=== PATIENT | male | born 1955 | race Caucasian/White ===

== ENCOUNTER 2018-05-26 06:11 | Inpatient (IN) ==
[~2018-05-26 06:11] MED LIST: ceFAZolin 1,000 MG, Sodium Chloride IRRigation 1,000 ML IR ONE
[2018-05-26] MEDS ORDERED: Albuterol 2.5 MG/3 ML NEBULIZER IH ONE ×2 (06:47→07:09)
[2018-05-26] MEDS ORDERED: Albuterol 2.5 MG/3 ML NEBULIZER ONE (06:51)
[2018-05-26] MEDS ORDERED: Ringers Solution, Lactated 1,000 ML IVC SCH ×2 (07:00→07:15)
[2018-05-26] MEDS ORDERED: Heparin 1,000 UNITS/500 mL 500 ML ONE (07:07)
[2018-05-26] MEDS ORDERED: LIDOCAINE 1% PF 2 ML AMPUL ONE (07:07)
[2018-05-26] MEDS ORDERED: Acetaminophen IV 1,000 MG/100 ML INFUS..BTL ONE (07:07)
[2018-05-26] MEDS ORDERED: *HR* FentaNYL (PF) 100 MCG/2 ML VIAL ONE ×2 (07:10→11:54)
[2018-05-26] MEDS ORDERED: *HR* Propofol 200 MG/20 ML VIAL IVP ONE (07:11)
[2018-05-26] MEDS ORDERED: *HR* Midazolam HCl 2 MG/2 ML VIAL ONE (07:11)
[2018-05-26] MEDS ORDERED: Lidocaine -MPF 2% 2 ML VIAL ONE ×3 (07:12→08:07)
[2018-05-26] MEDS ORDERED: *HR* Succinylcholine 200 MG/10 ML VIAL IVP ONE (07:13)
[2018-05-26] MEDS ORDERED: *HR* Rocuronium Bromide 50 MG/5 ML VIAL ONE (07:13)
[2018-05-26] MEDS ORDERED: Lidocaine -MPF 4% 5 ML AMPUL ONE (07:15)
[2018-05-26] MEDS ORDERED: *HR* Phenylephrine 10 MG/ML VIAL ONE ×2 (07:16→09:32)
[2018-05-26] MEDS ORDERED: CeFAZolin Syr 2,000MG/20 ML 2,000 MG/20 ML SYRINGE IVPB ONE (07:19)
[2018-05-26] MEDS ORDERED: *HR* Remifentanil 1 MG VIAL IVP ONE (07:20)
[2018-05-26] MEDS ORDERED: Heparin 1,000 UNITS/500 mL 1,000 ML ONE (07:22)
[2018-05-26] MEDS ORDERED: Lidocaine 1% 20 ML MDV ONE (07:23)
--- NOTE | 2018-05-26 07:29 | History & Physical Report ---
Date of Encounter: 05/26/18 Time of Encounter: 07:28 24 Hour HP Update - Instructions Instructions: If the History and Physical is less than 30 days old and was completed prior to A.M. admission and or procedure and has NOT been updated on calendar day of procedure please complete this update prior to performing procedure. - Update Patient reports changes in Medical Condition: No Changes in examination, assessment, or condition: No Changes in Medication: No Preop tests/diagnostics Reviewed: Yes Surgery Remains Indicated: Yes Consent for Planned Operative Procedure(s) Verified: Yes - Pre-Operative Checklist Preoperative Checklist Indicated: Yes Prophylactic Antibiotic Ordered: Yes Home Medications Include Beta Paras: No Beta Paras Taken Today (Day of Surgery): No Beta Paras Taken Yesterday (Day Prior to Surgery): No Is VTE Prophylaxis Indicated?: Yes
[2018-05-26] MEDS ORDERED: Famotidine 20 MG/2 ML VIAL IVP ONE (07:35)
[2018-05-26] MEDS ORDERED: Acetaminophen IV 1,000 MG/100 ML INFUS..BTL IVPB ONE (07:35)
--- NOTE | 2018-05-26 07:37 | Anesthesia Evaluation PreOp ---
Date of Encounter: 05/26/18 Time of Encounter: 07:36 - Past History Planned Operation: L CEA Cardiac History: HTN, Hyperlipidemia Pulmonary History: Smoker (1 ppd), Other (High risk AAYUSH) SKEINER History: TIA (12/2017), Other (migraines, anxiety) Other Medical History: Thyroid (hypothyroid) Anesthesia History: No Prior Anesthetic Complications, Past Anesthesia (bilater tota hips, partial thyroid) Alcohol Use: recent Drug use: none Medications and Allergies ARIPiprazole [Abilify] 2 mg PO HS 05/15/18 [History] Aspirin [Lo-Dose Aspirin EC] 81 mg PO DAILY 05/15/18 [History] Citalopram Hydrobromide [Citalopram HBr] 40 mg PO DAILY 05/15/18 [History] Clopidogrel [Plavix] 75 mg PO DAILY 05/15/18 [History] LORazepam [Ativan] 1 mg PO QID 05/15/18 [History] Levothyroxine Sodium [Levoxyl] 224 mcg PO DAILY 05/15/18 [History] Trazodone HCl 150 mg PO HS 05/15/18 [History] 3 Allergy/AdvReac Type Severity Reaction Status Date / Time Penicillins Allergy Rash Verified 05/26/18 07:09 - Meds/Allergy Pre-op Review Medications Reviewed: Yes Allergies Reviewed: Yes Beta Blockers on Current Med List: No Anesthesia Results - Labs Laboratory Tests 05/07/18 05/07/18 05/07/18 11:57 11:58 11:58 WBC 3.4 L Hgb 10.2 L Hct 31.3 L Plt Count 102 L PT 12.1 INR 1.1 APTT 32.3 Sodium 136 Potassium 4.6 Chloride 102 Carbon Dioxide 26 BUN 15 Creatinine 0.89 Est GFR (Non-Af Amer) > 60 - Imaging Additional studies: Impressions: LVEF 60-65%. Normal LV chamber size, wall thickness and function. Mild left ventricular diastolic dysfunction. Normal right ventricular structure and function. No evidence of pulmonary hypertension. No significant valvular dysfunction. Vessel Findings: * Cerebrovascular Arteries There is a lesion present with 95%+ stenosis, in the Proximal Right Internal Carotid. The lesion has heavy calcification present. No intervention was performed on this Lesion. There is a lesion present with 95%+ stenosis, in the Proximal Left Internal Carotid. The lesion has heavy calcification present. No intervention was performed on this Lesion. Anesthesia Exam Vital Signs/O2 Sat/Glucose, Most Recent Temp Pulse Resp BP Pulse Ox 97.6 F 93 18 131/73 97 05/26/18 06:36 05/26/18 06:36 05/26/18 06:36 05/26/18 06:36 05/26/18 06:36 Height: 1.73 Weight: 102 kg NPO (# of Hours): > 8 - HEENT Pupil (Motor): Pupils equal Mallampati: III Teeth: Edentulous Oral Opening: Greater than 3 - SKEINER LOC: Oriented SKEINER Motor: Normal RUE, Normal LUE, Normal RLE, Normal LLE, Normal Face SKEINER Sensory: Normal: RUE, LUE, RLE, LLE, Face - Cardiac Rhythm: Regular Murmur: None - Pulmonary Breath Sounds: bilateral Clear Respiratory Effort: Symmetrical Anesthesia Assess/Plan ASA Score: 3 Modified Hazel Scale for Level of Consciousness: Cooperative, oriented, and tranquil Anesthetic Plan: General Monitoring Plan: Standard Monitors, A-Line Recovery Plan: PACU
[2018-05-26] MEDS ORDERED: *HR* Promethazine 25 MG/ML VIAL IVP PRN (07:41)
[2018-05-26] MEDS ORDERED: Ondansetron 4 MG/2 ML VIAL IVP ONE (07:41)
[2018-05-26] MEDS ORDERED: *HR* Labetalol 100 MG/20 ML MDV IVP PRN (07:41)
[2018-05-26] MEDS ORDERED: *HR* FentaNYL (PF) 100 MCG/2 ML VIAL IVP PRN (07:41)
[2018-05-26] MEDS ORDERED: *HR* OxyCODONE Immed Rel 5 MG TABLET PO PRN (07:41)
[2018-05-26] MEDS ORDERED: Dexamethasone 4 MG/ML VIAL ONE ×2 (08:22→13:11)
[2018-05-26] MEDS ORDERED: Ondansetron 4 MG/2 ML VIAL ONE (08:22)
[2018-05-26] MEDS ORDERED: *HR* Heparin 5,000 UNIT/ML VIAL ONE ×2 (09:24→10:04)
[2018-05-26] MEDS ORDERED: *HR* PHENYLEPHRINE 1,000 MCG/10 ML SYRINGE IVP ONE (09:29)
[2018-05-26] MEDS ORDERED: Ketorolac 30 MG/ML VIAL ONE (09:53)
[2018-05-26] MEDS ORDERED: Neostigmine Methylsulfate 3 MG/3 ML SYRINGE ONE (11:54)
--- NOTE | 2018-05-26 12:21 | Operative Note ---
Date of procedure: 05/26/18 Pre-op diagnosis: TIA/bilateral carotid stenosis Post-op diagnosis: same Procedure: left carotid endarterectomy with 8 Fr shunt Complications: none Anesthesia: SADIAA Surgeon: Armin Patino Was there an starch treating assistant present: No Estimated blood loss (cc): 200 Specimen: 0 Condition: stable Disposition: PACU Procedure in Detail: History Mr. Tripathi is a 63-year-old white male who experienced an abrupt onset of neurologic symptoms in late February. He had difficulties with fine motor control and his gait. These have improved over time but it led to a neurologic workup. This included CT angiogram as well as catheter-based angiography. He was found to have high-grade and critical internal carotid artery stenoses bilaterally. He now comes to the operating room for the first of 2 operations with the left carotid endarterectomy to be performed first. Procedure After informed consent was obtained the patient was taken the operating room. General endotracheal anesthesia was established under arterial line pressure monitoring. The left neck was sterilely prepped and draped. A timeout protocol was observed. An incision was then made parallel to the anterior border of the left sternocleidomastoid muscle. Dissection was carried down to open and expose the contents of the carotid sheath. An anatomic abnormality was identified with the vagus nerve being translocated onto the anterior and medial surface of the carotid system. This complicated the dissection in order to avoid any trauma to the vagus nerve. This was gently dissected and reflected more medially. The bifurcation of the carotid artery was also high in the neck. Dissection was made so that the carotid bifurcation and the superior thyroid artery were selectively controlled. 5000 units of heparin were administered intravenously. After 3 minutes later the vessels were clamped with the internal carotid artery clamped first. Using 11 blade knife and Hull scissors the artery was opened. Very thickened dense calcific stenosis was identified at the bulb and proximal left internal carotid artery. The plaque was markedly irregular with a critical stenosis as outlined on the angiogram. After this area was opened and 8 Spanish shunt was then placed atraumatically. Patency of the shunt was confirmed by the use of intraoperative Doppler. The endarterectomy was then begun at the distal aspect of the common carotid artery. A dissection plane was established circumferentially. This was carried both proximally and distally. The orifice of the external carotid and superior thyroid artery was endarterectomized. The dissection was then carried up on into the left internal carotid artery. The endpoint was smooth. No tacking sutures were necessary at this location though this was very high in the neck. Attention was then directed proximally. It was found that the patient had a posteromedial tongue of very dense and thick plaque. This required an extension of the arteriotomy proximally. This required that the proximal clamp E be located more proximally as well. With this done the endarterectomy was performed of the more proximal aspect of the common carotid artery. The bed of the vessel was then copiously irrigated with heparinized saline. All loose or residual material was removed. A patch and plasty was then performed using a bovine pericardial patch. This was sewn into position using 2 6-0 Prolene sutures. Leaving a small space open on the suture line the shunt was clamped divided and removed. The final few sutures were then placed. The internal was allowed to backbleed and reclamped. The external and common were opened and then finally the internal was reopened. There is no hemodynamic distress with this maneuver. Excellent Doppler signals were identified throughout the left carotid system. The wound was then irrigated. Hemostasis was achieved. A superficial cervical block using half percent Marcaine was performed. The wound was then closed in layers using absorbable sutures. No drains were placed. The patient was extubated in the operating room. He was found to be neurologically intact. He was then taken from the operating room to the recovery room in stable condition.
[2018-05-26] MEDS ORDERED: *HR* Metoprolol 5 MG/5 ML VIAL IVP ONE (12:22)
--- NOTE | 2018-05-26 12:56 | Anesthesia Evaluation Post Op ---
Date of Encounter: 05/26/18 Time of Encounter: 12:55 - Vital Signs Vital Signs: Vital Signs/O2 Sat/Glucose, Most Recent Temp Pulse Resp BP Pulse Ox 100.8 F H 101 16 164/71 95 05/26/18 12:18 05/26/18 12:38 05/26/18 12:38 05/26/18 12:38 05/26/18 12:38 - Lungs Lungs: Clear Ascult./Percussion - Airway Airway: Non-obstructed - Cardiovascular Regular Rate - Mental Status Mental Status: Alert & Oriented, Answers Appropriately - Pain Pain Scale: 2 Pain Scale used: Numeric (1 - 10), DavisMarilee (Faces) - Nausea Vomiting Nausea Vomiting: Not Present - Hydration Hydration: NPO - Discharge PostOp Status: Transfer Patient to floor
[2018-05-26] MEDS ORDERED: *HR* HYDROcodone/Acet 5/325 mg TABLET PO PRN (13:28)
[2018-05-26] MEDS ORDERED: Ondansetron 4 MG/2 ML VIAL IVP PRN (13:28)
[2018-05-26] MEDS ORDERED: Acetaminophen 325 MG TABLET PO PRN (13:28)
[2018-05-26] MEDS ORDERED: *HR* Labetalol 20 MG/4 ML SYRINGE IVP PRN (13:28)
[2018-05-26] MEDS ORDERED: Naloxone 0.4 MG/ML INJ IVP PRN (13:28)
[2018-05-26] MEDS: *HR* LORazepam 1 MG TABLET PO SCH ×3 (14:36→21:23)
[2018-05-26] MEDS ORDERED: ARIPiprazole 2 MG TABLET PO SCH (21:00)
[2018-05-26] MEDS ORDERED: traZODone 50 MG TABLET PO SCH (21:00)
[2018-05-27 05:23] LABS: Red Cell Distribution Width 18.5 % (11.5-14.5)
[2018-05-27 05:24] LABS: Eosinophils % 1.4 %; Hematocrit 22.9 % (37.5-50.1); Hemoglobin 7.4 g/dL (12.9-16.9); Immature Granulocytes % 0.7 % (0-4); Lymphocytes # 0.5 K/mcL (0.6-4.6); Lymphocytes % 34.7 %; Mean Corpuscular HGB Conc 32.3 g/dL (31.6-35.5); Mean Corpuscular Hemoglobin 31.4 pg (28.0-33.3); Mean Platelet Volume 9.6 fL (9.4-12.4); Monocytes # 0.1 K/mcL (0.0-1.3); Monocytes % 6.8 %; Red Blood Count 2.36 M/mcL (4.19-5.50); Segmented Neutrophils % 56.4 %
[2018-05-27 05:31] LABS: Neutrophils # 0.9 K/mcL (1.6-8.9); Platelet Count 80 K/mcL (140-400)
[2018-05-27 05:44] LABS: BUN/Creatinine Ratio 19 (6-26); Blood Urea Nitrogen 14 mg/dL (8-23); Calcium 8.8 mg/dL (8.6-10.3); Carbon Dioxide 28 mEq/L (23-29); Chloride 107 mEq/L (98-107); Glucose 100 mg/dL (70-105); Osmolality,Calculated 289 (280-300); Sodium 139 mEq/L (136-145); eGFR For Non-African Americans > 60 (> 60)
[2018-05-27 06:12] LABS: Platelet Estimate Decreased (Normal)
[2018-05-27] MEDS: *HR* LORazepam 1 MG TABLET PO SCH ×2 (08:08→13:06)
[2018-05-27] MEDS ORDERED: Aspirin Enteric Coated 81 MG Tablet PO SCH (09:00)
[2018-05-27 11:48] VITALS: BP 140/60
--- NOTE | 2018-05-27 12:43 | Discharge Summary ---
Orders not resulted at time of discharge: Pending orders 05/20/18 Red Blood Cells [BBK] Routine Date of Encounter: 05/27/18 Time of Encounter: 12:41 - Discharge Diagnosis (1) Bilateral carotid artery stenosis Priority: Primary Status: Acute Comments: Patient was found to have a neurologic event in late February. This led to workup and eventual referral to vascular surgery. An angiogram was obtained which showed high-grade bilateral internal carotid artery stenoses. He comes to the hospital for this admission for the first of 2 carotid endarterectomies. The left carotid endarterectomy was performed first. (2) Hypertension Priority: Secondary Status: Chronic Comments: Patient has history of chronic hypertension Qualifiers: Hypertension type: essential hypertension Qualified Code(s): I10 - Essential (primary) hypertension (3) Hyperlipidemia Priority: Secondary Status: Chronic Comments: Patient has history of chronic hyperlipidemia Qualifiers: Hyperlipidemia type: unspecified Qualified Code(s): E78.5 - Hyperlipidemia , unspecified (4) Tobacco abuse Priority: Secondary Status: Chronic Comments: Patient has history of tobacco abuse - Hospital Course Hospital course: Mr. Price is a 63 year old male Who was admitted for carotid endarterectomy. Patient has bilateral carotid stenosis. He comes for the left carotid artery surgery first. This was performed under general endotracheal anesthesia. The patient had no periprocedural complications. The patient recovered well. He was neurologically intact. He was hemodynamically stable. He was felt fit for discharge on the afternoon of postoperative day #1. Instructions were given in regards to diet and activity and wound care prior to discharge. - Time Spent with Patient Total time spent providing and/or coordinating discharge services: - Discharge Medications Home Medications: ARIPiprazole [Abilify] 2 mg PO HS 05/15/18 [History] Aspirin [Lo-Dose Aspirin EC] 81 mg PO DAILY 05/15/18 [History] Citalopram Hydrobromide [Citalopram HBr] 40 mg PO DAILY 05/15/18 [History] Clopidogrel [Plavix] 75 mg PO DAILY 05/15/18 [History] LORazepam [Ativan] 1 mg PO QID 05/15/18 [History] Levothyroxine Sodium [Levoxyl] 224 mcg PO DAILY 05/15/18 [History] Trazodone HCl 150 mg PO HS 05/15/18 [History] Allergies/Adverse Reactions: 3 Allergy/AdvReac Type Severity Reaction Status Date / Time Penicillins Allergy Rash Verified 05/26/18 07:09 Date of admission: 05/26/18 13:10 Primary care physician: Armin Vargas DO Consults: None Procedure(s) Performed: Left carotid endarterectomy with patch angioplasty Discharging clinician: Armin Patino Anticipated date of discharge: 05/27/18 Exam Vital Signs, Last 4 Hours Temp Pulse Resp BP Pulse Ox 05/27/18 11:42 97.8 F 84 18 140/60 99 General: Present: Conversant, No Apparent Distress, Well developed, Well nourished HEENT: Present: Atraumatic, Normocephaly, Trachea midline, Pupils equal Neck: Absent: JVD Cardiac: Present: Reg Rate and Rhythm Lungs: Present: Normal Breath Sounds Neuro: Present: Alert and responsive, No focal deficits noted, Cranial nerves grossly intact, Motor nerves grossly intact, Sensory nerves grossly intact Vascular: Present: Surgical incisions (Left neck surgical site is clean and dry. There is no hematoma.) - Patient Status Disposition: Home, Self-Care Condition: Good Functional capacity at discharge: independent ambulation Overall status at discharge: patient is progressing back to baseline - Discharge Instructions Follow Up With: Armin Vargas DO [Primary Care Provider] - 06/01/18 1:00 pm Armin Patino MD [Partnered Physician] - 06/10/18 8:45 am Additional Instructions: Use ice pack on left neck for the next 48 hours No lifting greater than 10 pounds. No driving. No manual labor. Resume usual home medications. Keep left neck incision dry for a total of 5 days following surgery. Patient may walk inside and outside. Patient may use stairs as tolerated. - Diet and Activity Activity: increase activity as tolerated Diet: low fat, low cholesterol - VTE Documentation of Mechanical Device: Intermittent pneumatic compression device
== END 2018-05-27 13:30 | disposition home or self-care (01) | DRG 39 ==
LOC: SAMDAY 06:11 → 2NNU 13:10
PROVIDERS: ADMIT Surgery Vascular Surgery; ATTEND Surgery Vascular Surgery

== ENCOUNTER 2020-03-02 15:27 | Inpatient (IN) ==
[2020-03-02] MEDS ORDERED: Naloxone 0.4 MG/ML INJ IVP PRN (19:47)
[2020-03-03] MEDS: traZODone 50 MG TABLET PO SCH ×2 (00:26→20:38)
[2020-03-03] MEDS: 0.9 % Sodium Chloride 1,000 ML IVC SCH ×2 (00:28→14:21)
[2020-03-03 01:04] LABS: Basophils % 0.7 %; Eosinophils # 0.1 K/mcL (0.0-0.6); Eosinophils % 3.3 %; Hematocrit 25.3 % (37.5-50.1); Immature Platelets 1.3 % (1.1-6.1); Lymphocytes # 0.3 K/mcL (0.6-4.6); Lymphocytes % 20.3 %; Mean Corpuscular HGB Conc 31.6 g/dL (31.6-35.5); Mean Corpuscular Hemoglobin 31.1 pg (28.0-33.3); Mean Corpuscular Volume 98.4 fL (83.0-100.0); Mean Platelet Volume 9.8 fL (9.4-12.4); Monocytes # 0.1 K/mcL (0.0-1.3); Monocytes % 7.2 %; Red Blood Count 2.57 M/mcL (4.19-5.50); Red Cell Distribution Width 16.6 % (11.5-14.5); Segmented Neutrophils % 68.5 %; White Blood Count 1.5 K/mcL (4.3-11.1)
[2020-03-03 01:05] LABS: Platelet Count 71 K/mcL (140-400)
[2020-03-03 01:21] LABS: Alanine Aminotransferase 7 Units/L (7-52); Albumin 3.9 g/dL (3.5-5.7); Albumin/Globulin Ratio 1.6 (1.1-2.2); Alkaline Phosphatase 68 Units/L (34-104); Aspartate Amino Transferase 9 Units/L (13-39); BUN/Creatinine Ratio 18 (6-26); Bilirubin,Total 1.3 mg/dL (0.3-1.0); Blood Urea Nitrogen 14 mg/dL (8-23); Calcium 8.7 mg/dL (8.6-10.3); Carbon Dioxide 28 mEq/L (23-29); Chloride 104 mEq/L (98-107); Globulin 2.4 g/dL (2.4-3.5); Glucose 105 mg/dL (70-105); Osmolality,Calculated 283 (280-300); Potassium 3.9 mEq/L (3.5-5.1); Sodium 136 mEq/L (136-145); Total Protein 6.3 g/dL (6.4-8.9); eGFR For African Americans > 60 (> 60); eGFR For Non-African Americans > 60 (> 60)
[2020-03-03 01:23] LABS: INR 1.1
[2020-03-03 01:25] LABS: Activated Partial Thrombo Time 34.2 Seconds (26.0-36.0)
[2020-03-03 01:29] LABS: Anisocytosis 1+ (Not Present); Platelet Estimate Decreased (Normal)
[2020-03-03] MEDS ORDERED: Cyanocobalamin (B-12) 1,000 MCG/ML VIAL IM SCH (08:15)
[2020-03-03] MEDS: BuPROPion XL (24 HR) 150 MG TABLET PO SCH (10:57)
[2020-03-03] MEDS: Venlafaxine XR (24 HR) 75 MG CAP.ER.24H PO SCH (10:57)
[2020-03-03] MEDS: *HR* LORazepam 1 MG TABLET PO SCH ×4 (10:57→20:38)
[2020-03-03] MEDS: Aspirin Enteric Coated 81 MG Tablet PO SCH (10:57)
[2020-03-03] MEDS: *HR* Heparin 5,000 UNIT/ML VIAL SQ SCH (16:49)
[2020-03-04 05:58] LABS: Hemoglobin 6.9 g/dL (12.9-16.9)
[2020-03-04 06:00] LABS: Eosinophils % 1.9 %; Hematocrit 22.4 % (37.5-50.1); Lymphocytes # 0.3 K/mcL (0.6-4.6); Lymphocytes % 31.7 %; Mean Corpuscular HGB Conc 30.8 g/dL (31.6-35.5); Mean Corpuscular Hemoglobin 30.7 pg (28.0-33.3); Mean Corpuscular Volume 99.6 fL (83.0-100.0); Mean Platelet Volume 9.7 fL (9.4-12.4); Monocytes # 0.1 K/mcL (0.0-1.3); Monocytes % 6.7 %; Neutrophils # 0.6 K/mcL (1.6-8.9); Red Blood Count 2.25 M/mcL (4.19-5.50); Red Cell Distribution Width 16.9 % (11.5-14.5); Segmented Neutrophils % 58.7 %
[2020-03-04 06:10] LABS: Platelet Count 66 K/mcL (140-400)
[2020-03-04 06:16] LABS: BUN/Creatinine Ratio 16 (6-26); Blood Urea Nitrogen 13 mg/dL (8-23); Calcium 8.4 mg/dL (8.6-10.3); Carbon Dioxide 26 mEq/L (23-29); Chloride 104 mEq/L (98-107); Glucose 82 mg/dL (70-105); Osmolality,Calculated 281 (280-300); Phosphorous 3.2 mg/dL (2.7-4.5); Potassium 3.8 mEq/L (3.5-5.1); Sodium 136 mEq/L (136-145); eGFR For African Americans > 60 (> 60); eGFR For Non-African Americans > 60 (> 60)
[2020-03-04 06:34] LABS: Platelet Estimate Decreased (Normal)
[2020-03-04] MEDS: *HR* Heparin 5,000 UNIT/ML VIAL SQ SCH ×2 (06:51→17:29)
[2020-03-04] MEDS: *HR* LORazepam 1 MG TABLET PO SCH ×4 (07:21→20:50)
[2020-03-04] MEDS: BuPROPion XL (24 HR) 150 MG TABLET PO SCH (07:21)
[2020-03-04] MEDS: Venlafaxine XR (24 HR) 75 MG CAP.ER.24H PO SCH (07:21)
[2020-03-04] MEDS: Aspirin Enteric Coated 81 MG Tablet PO SCH (07:21)
[2020-03-04] MEDS ORDERED: 0.9 % Sodium Chloride 250 ML ONE (09:24)
[2020-03-04 10:19] LABS: % Iron Saturation 25 % (20-55); Iron 63 mcg/dL (65-175); Transferrin 179 mg/dL (203-362)
[2020-03-04 10:37] LABS: Ferritin 154 ng/mL (20-250)
[2020-03-04 10:58] LABS: Folate > 22.3 ng/mL (3.0-16.0); Vitamin B12 1287 pg/mL (250-1100)
[2020-03-04 15:34] LABS: Hematocrit 23.7 % (37.5-50.1); Hemoglobin 7.7 g/dL (12.9-16.9)
[2020-03-04] MEDS: traZODone 50 MG TABLET PO SCH (20:50)
[2020-03-05 00:52] LABS: Hematocrit 24.5 % (37.5-50.1); Hemoglobin 7.9 g/dL (12.9-16.9); Mean Corpuscular HGB Conc 32.2 g/dL (31.6-35.5)
[2020-03-05 00:54] LABS: Immature Platelets 1.4 % (1.1-6.1); Mean Corpuscular Hemoglobin 31.1 pg (28.0-33.3); Mean Corpuscular Volume 96.5 fL (83.0-100.0); Mean Platelet Volume 9.8 fL (9.4-12.4); Red Blood Count 2.54 M/mcL (4.19-5.50); Red Cell Distribution Width 16.3 % (11.5-14.5); White Blood Count 1.1 K/mcL (4.3-11.1)
[2020-03-05 01:14] LABS: BUN/Creatinine Ratio 16 (6-26); Blood Urea Nitrogen 12 mg/dL (8-23); Calcium 8.8 mg/dL (8.6-10.3); Carbon Dioxide 26 mEq/L (23-29); Chloride 103 mEq/L (98-107); Glucose 83 mg/dL (70-105); Osmolality,Calculated 283 (280-300); Potassium 3.9 mEq/L (3.5-5.1); Sodium 137 mEq/L (136-145); eGFR For African Americans > 60 (> 60); eGFR For Non-African Americans > 60 (> 60)
[2020-03-05] MEDS: *HR* Heparin 5,000 UNIT/ML VIAL SQ SCH ×2 (06:08→16:31)
[2020-03-05] MEDS: Aspirin Enteric Coated 81 MG Tablet PO SCH (09:57)
[2020-03-05] MEDS: *HR* LORazepam 1 MG TABLET PO SCH ×4 (09:57→21:20)
[2020-03-05] MEDS: Venlafaxine XR (24 HR) 75 MG CAP.ER.24H PO SCH (09:57)
[2020-03-05] MEDS: BuPROPion XL (24 HR) 150 MG TABLET PO SCH (09:57)
[2020-03-05 16:54] LABS: Bilirubin,Urine Small (Negative); Blood,Urine Negative (Negative); Clarity,Urine Cloudy (Clear); Color,Urine Orange (Yellow); Glucose,Urine (UA) Normal (Normal); Ketones,Urine Trace mg/dL (Negative); Leukocyte Esterase,Urine Small (Negative); Nitrite,Urine Negative (Negative); Protein,Urine Negative (Neg-Trace); Urobilinogen,Urine >=8.0 mg/dL (Normal)
[2020-03-05 17:06] LABS: Bacteria,Urine None Seen per hpf (None-Few); Hyaline Casts,Urine None Seen per lpf (None-Few); RBC,Urine 0-3 per hpf (0-3); Squamous Epithelial Cell,Urine Many per lpf (None-Few)
[2020-03-05] MEDS: traZODone 50 MG TABLET PO SCH (21:20)
[2020-03-06 02:23] LABS: Eosinophils % 1.6 %
[2020-03-06 02:25] LABS: Hemoglobin 8.3 g/dL (12.9-16.9); Immature Platelets 1.5 % (1.1-6.1); Lymphocytes # 0.3 K/mcL (0.6-4.6); Lymphocytes % 26.2 %; Mean Corpuscular HGB Conc 33.2 g/dL (31.6-35.5); Mean Corpuscular Hemoglobin 32.2 pg (28.0-33.3); Mean Corpuscular Volume 96.9 fL (83.0-100.0); Mean Platelet Volume 9.9 fL (9.4-12.4); Monocytes # 0.1 K/mcL (0.0-1.3); Monocytes % 11.5 %; Neutrophils # 0.7 K/mcL (1.6-8.9); Red Blood Count 2.58 M/mcL (4.19-5.50); Segmented Neutrophils % 60.7 %; White Blood Count 1.2 K/mcL (4.3-11.1)
[2020-03-06 02:45] LABS: Platelet Count 74 K/mcL (140-400)
[2020-03-06 03:11] LABS: Anisocytosis 1+ (Not Present); Microcytosis Present (Not Present)
[2020-03-06 03:12] LABS: Platelet Estimate Decreased (Normal)
[2020-03-06] MEDS: *HR* Heparin 5,000 UNIT/ML VIAL SQ SCH (05:17)
[2020-03-06] MEDS: Venlafaxine XR (24 HR) 75 MG CAP.ER.24H PO SCH (07:35)
[2020-03-06] MEDS: *HR* LORazepam 1 MG TABLET PO SCH ×2 (07:35→13:31)
[2020-03-06] MEDS: Aspirin Enteric Coated 81 MG Tablet PO SCH (07:35)
[2020-03-06] MEDS: BuPROPion XL (24 HR) 150 MG TABLET PO SCH (07:35)
[2020-03-06] MEDS ORDERED: polyethylene glycoL 3350 17 GM POWD.PACK PO SCH (10:00)
[2020-03-06 10:23] VITALS: BP 114/67
== END 2020-03-06 16:40 | DRG 536 ==
LOC: 3NENU → SUATTDRO 18:33
PROVIDERS: ADMIT Internal Medicine; ATTEND Internal Medicine

== ENCOUNTER 2020-07-17 10:08 | Inpatient (IN) ==
[2020-07-17 10:51] LABS: INR 1.1; Prothrombin Time 13.1 Seconds (9.4-12.1)
[2020-07-17 11:06] LABS: Red Cell Distribution Width 17.8 % (11.5-14.5)
[2020-07-17 11:07] LABS: Hematocrit 25.9 % (37.5-50.1); Hemoglobin 7.9 g/dL (12.9-16.9); Immature Platelets 1.6 % (1.1-6.1); Mean Corpuscular HGB Conc 30.5 g/dL (31.6-35.5); Mean Corpuscular Volume 101.6 fL (83.0-100.0); Mean Platelet Volume 9.7 fL (9.4-12.4); Red Blood Count 2.55 M/mcL (4.19-5.50); White Blood Count 1.4 K/mcL (4.3-11.1)
[2020-07-17 11:08] LABS: BUN/Creatinine Ratio 18 (6-26); Blood Urea Nitrogen 16 mg/dL (8-23); Calcium 9.1 mg/dL (8.6-10.3); Carbon Dioxide 25 mEq/L (23-29); Chloride 103 mEq/L (98-107); Glucose 117 mg/dL (70-105); Osmolality,Calculated 282 (280-300); Potassium 3.9 mEq/L (3.5-5.1); Sodium 135 mEq/L (136-145); Troponin I < 0.03 ng/mL (< 0.04); eGFR For African Americans > 60 (> 60); eGFR For Non-African Americans > 60 (> 60)
[2020-07-17] MEDS ORDERED: Naloxone 0.4 MG/ML INJ IVP PRN (13:00)
[2020-07-17] MEDS ORDERED: Aspirin 325 MG TABLET PO ONE (13:01)
[2020-07-17] MEDS ORDERED: Perflutren Lipid Microsphere 1.3 ML in 0.9 % Sodium Chloride 8.7 ML IVP PRN (13:02)
[2020-07-17] MEDS ORDERED: Isovue-370 500 ML BOTTLE IVP ONE (13:10)
[2020-07-17 19:52] LABS: Bilirubin,Urine Negative (Negative); Blood,Urine Negative (Negative); Clarity,Urine Clear (Clear); Color,Urine Light-Yellow (Yellow); Glucose,Urine (UA) Normal (Normal); Ketones,Urine Negative (Negative); Leukocyte Esterase,Urine Negative (Negative); Nitrite,Urine Negative (Negative); PH,Urine 6.5 pH Units (5.0-8.0); Protein,Urine Negative (Neg-Trace); Specific Gravity,Urine 1.026 (1.010-1.025); Urobilinogen,Urine >=8.0 mg/dL (Normal)
[2020-07-17] MEDS ORDERED: traZODone 50 MG TABLET PO ONE (22:31)
[2020-07-17] MEDS ORDERED: *HR* LORazepam 1 MG TABLET PO ONE (22:31)
[2020-07-18 05:47] LABS: Hemoglobin 7.5 g/dL (12.9-16.9)
[2020-07-18 05:49] LABS: Basophils % 0.6 %; Eosinophils % 1.9 %; Hematocrit 24.6 % (37.5-50.1); Immature Granulocytes % 0.6 % (0-4); Immature Platelets 1.6 % (1.1-6.1); Lymphocytes # 0.5 K/mcL (0.6-4.6); Lymphocytes % 30.8 %; Mean Corpuscular HGB Conc 30.5 g/dL (31.6-35.5); Mean Corpuscular Hemoglobin 30.5 pg (28.0-33.3); Mean Platelet Volume 9.2 fL (9.4-12.4); Monocytes # 0.1 K/mcL (0.0-1.3); Monocytes % 8.3 %; Neutrophils # 0.9 K/mcL (1.6-8.9); Nucleated Red Blood Cells 1.9 /100 WBC (0); Red Blood Count 2.46 M/mcL (4.19-5.50); Red Cell Distribution Width 17.8 % (11.5-14.5); Segmented Neutrophils % 57.8 %; White Blood Count 1.6 K/mcL (4.3-11.1)
[2020-07-18 05:50] LABS: Folate > 22.3 ng/mL (3.0-16.0); Vitamin B12 505 pg/mL (250-1100)
[2020-07-18 06:02] LABS: Platelet Count 90 K/mcL (140-400)
[2020-07-18 06:37] LABS: BUN/Creatinine Ratio 14 (6-26); Blood Urea Nitrogen 14 mg/dL (8-23); Calcium 9.2 mg/dL (8.6-10.3); Carbon Dioxide 29 mEq/L (23-29); Chloride 103 mEq/L (98-107); Chol/HDL Ratio 3.1 (0-4.9); Cholesterol 110 mg/dL (< 200); Glucose 85 mg/dL (70-105); HDL Cholesterol 35 mg/dL (40-59); LDL Cholesterol,Calculated 49 mg/dL (< 100); Magnesium 2.2 mg/dL (1.6-2.6); Osmolality,Calculated 286 (280-300); Phosphorous 3.5 mg/dL (2.7-4.5); Sodium 138 mEq/L (136-145); Triglycerides 130 mg/dL (< 150); eGFR For African Americans > 60 (> 60); eGFR For Non-African Americans > 60 (> 60)
[2020-07-18 06:54] LABS: Platelet Estimate Decreased (Normal); Poikilocytosis 1+ (Not Present)
[2020-07-18 07:36] LABS: Thyroid Stimulating Hormone 0.862 mcIU/mL (0.340-5.600)
[2020-07-18] MEDS ORDERED: Cyanocobalamin (B-12) 1,000 MCG/ML VIAL IM SCH (08:45)
[2020-07-18] MEDS: LEVOMEFOLATE CALCIUM 15 MG PO SCH (08:54)
[2020-07-18] MEDS: *HR* LORazepam 1 MG TABLET PO SCH ×4 (08:54→21:40)
[2020-07-18] MEDS: Venlafaxine XR (24 HR) 75 MG CAP.ER.24H PO SCH (08:54)
[2020-07-18] MEDS: Aspirin 81 MG TAB.CHEW PO SCH (08:55)
[2020-07-18] MEDS: BuPROPion XL (24 HR) 150 MG TABLET PO SCH ×2 (08:55)
[2020-07-18 08:58] LABS: Estimated Average Glucose 59 mg/dl
[2020-07-18] MEDS ORDERED: 0.9 % Sodium Chloride 250 ML ONE (10:49)
[2020-07-18] MEDS: traZODone 50 MG TABLET PO SCH (21:42)
[2020-07-19 06:02] LABS: Eosinophils % 1.4 %
[2020-07-19 06:04] LABS: Basophils % 0.7 %; Hematocrit 27.5 % (37.5-50.1); Hemoglobin 8.6 g/dL (12.9-16.9); Immature Granulocytes % 0.7 % (0-4); Immature Platelets 1.8 % (1.1-6.1); Lymphocytes # 0.4 K/mcL (0.6-4.6); Lymphocytes % 27.8 %; Mean Corpuscular HGB Conc 31.3 g/dL (31.6-35.5); Mean Corpuscular Hemoglobin 30.7 pg (28.0-33.3); Mean Corpuscular Volume 98.2 fL (83.0-100.0); Monocytes # 0.2 K/mcL (0.0-1.3); Monocytes % 10.4 %; Red Cell Distribution Width 17.3 % (11.5-14.5); White Blood Count 1.4 K/mcL (4.3-11.1)
[2020-07-19 06:14] LABS: Neutrophils # 0.8 K/mcL (1.6-8.9); Platelet Count 91 K/mcL (140-400)
[2020-07-19 07:05] LABS: Anisocytosis 1+ (Not Present); Platelet Estimate Slight Decrease (Normal); Poikilocytosis 1+ (Not Present)
[2020-07-19] MEDS: BuPROPion XL (24 HR) 150 MG TABLET PO SCH ×2 (09:53)
[2020-07-19] MEDS: Venlafaxine XR (24 HR) 75 MG CAP.ER.24H PO SCH (09:54)
[2020-07-19] MEDS: Aspirin 81 MG TAB.CHEW PO SCH (09:54)
[2020-07-19] MEDS: *HR* LORazepam 1 MG TABLET PO SCH ×4 (09:55→20:26)
[2020-07-19] MEDS: lisinopriL 5 MG TABLET PO SCH (09:55)
[2020-07-19] MEDS: LEVOMEFOLATE CALCIUM 15 MG PO SCH (10:38)
[2020-07-19] MEDS: traZODone 50 MG TABLET PO SCH (20:27)
[2020-07-20 02:11] LABS: Eosinophils % 1.9 %; Immature Granulocytes % 0.6 % (0-4); Mean Corpuscular Volume 99.2 fL (83.0-100.0)
[2020-07-20 02:13] LABS: Basophils % 0.6 %; Hemoglobin 7.7 g/dL (12.9-16.9); Immature Platelets 2.1 % (1.1-6.1); Lymphocytes # 0.6 K/mcL (0.6-4.6); Lymphocytes % 37.7 %; Mean Corpuscular HGB Conc 30.8 g/dL (31.6-35.5); Mean Corpuscular Hemoglobin 30.6 pg (28.0-33.3); Mean Platelet Volume 9.7 fL (9.4-12.4); Monocytes # 0.2 K/mcL (0.0-1.3); Monocytes % 10.1 %; Neutrophils # 0.8 K/mcL (1.6-8.9); Red Blood Count 2.52 M/mcL (4.19-5.50); Red Cell Distribution Width 17.3 % (11.5-14.5); Segmented Neutrophils % 49.1 %; White Blood Count 1.6 K/mcL (4.3-11.1)
[2020-07-20 02:14] LABS: Platelet Count 88 K/mcL (140-400)
[2020-07-20 02:35] LABS: Basophilic Stippling 1+ (Not Present); Hypochromasia Present (Not Present); Microcytosis Present (Not Present)
[2020-07-20 02:36] LABS: Platelet Estimate Decreased (Normal)
[2020-07-20] MEDS ORDERED: ceFAZolin 1,000 MG, Sodium Chloride IRRigation 1,000 ML IR ONE (06:00)
[2020-07-20] MEDS ORDERED: ceFAZolin 2,000 MG in 0.9 % Sodium Chloride 100 ML IVPB ONE (07:00)
[2020-07-20] MEDS: BuPROPion XL (24 HR) 150 MG TABLET PO SCH ×2 (08:22→08:23)
[2020-07-20] MEDS: Aspirin 81 MG TAB.CHEW PO SCH (08:22)
[2020-07-20] MEDS: Venlafaxine XR (24 HR) 75 MG CAP.ER.24H PO SCH (08:23)
[2020-07-20] MEDS: *HR* LORazepam 1 MG TABLET PO SCH ×3 (08:23→19:13)
[2020-07-20] MEDS: lisinopriL 5 MG TABLET PO SCH (08:23)
[2020-07-20] MEDS: LEVOMEFOLATE CALCIUM 15 MG PO SCH (08:24)
[2020-07-20] MEDS ORDERED: *HR* Propofol 200 MG/20 ML VIAL IVP ONE (10:10)
[2020-07-20] MEDS ORDERED: *HR* Remifentanil 2 MG VIAL IVP ONE (10:10)
[2020-07-20] MEDS ORDERED: *HR* Midazolam HCl 2 MG/2 ML VIAL ONE (10:10)
[2020-07-20] MEDS ORDERED: *HR* FentaNYL (PF) 100 MCG/2 ML VIAL ONE (10:10)
[2020-07-20] MEDS ORDERED: *HR* Vasopressin 20 UNIT/ML VIAL ONE (10:36)
[2020-07-20] MEDS ORDERED: *HR* Norepinephrine 4 MG/4 ML VIAL IVC ONE (10:36)
[2020-07-20] MEDS ORDERED: Lidocaine HCL 4 ML Topical Solution (Laryng-O-Jet Kit Sterile Pak) TP ONE (10:46)
[2020-07-20] MEDS ORDERED: Lidocaine -MPF 2% 2 ML VIAL ONE ×2 (10:46→16:41)
[2020-07-20] MEDS ORDERED: Ondansetron 4 MG/2 ML VIAL ONE (10:46)
[2020-07-20] MEDS ORDERED: *HR* Rocuronium Bromide 50 MG/5 ML VIAL ONE ×2 (10:46→14:23)
[2020-07-20] MEDS ORDERED: *HR* Succinylcholine 200 MG/10 ML VIAL IVP ONE (10:46)
[2020-07-20] MEDS ORDERED: *HR* Heparin 5,000 UNIT/ML VIAL ONE ×2 (10:46→15:13)
[2020-07-20] MEDS ORDERED: *HR* Phenylephrine 10 MG/ML VIAL ONE (10:46)
[2020-07-20 11:55] LABS: Adenovirus Not Detected (Not Detect); Bordetella Pertussis Not Detected (Not Detect); Chlamydophila pneumoniae Not Detected (Not Detect); Coronavirus 229E Not Detected (Not Detect); Coronavirus HKU1 Not Detected (Not Detect); Coronavirus NL63 Not Detected (Not Detect); Coronavirus OC43 Not Detected (Not Detect); Human Metapneumovirus Not Detected (Not Detect); Human Rhinovirus/Enterovirus Not Detected (Not Detect); Influenza A Subtype 2009 H1 Not Detected (Not Detect); Influenza B Not Detected (Not Detect); Mycoplasma pneumoniae Not Detected (Not Detect); Parainfluenza Virus 1 Not Detected (Not Detect); Parainfluenza Virus 2 Not Detected (Not Detect); Parainfluenza Virus 3 Not Detected (Not Detect); Parainfluenza Virus 4 Not Detected (Not Detect); Respiratory Syncytial Virus Not Detected (Not Detect); SARS-CoV-2 Not Detected (Not Detect)
[2020-07-20] MEDS ORDERED: Heparin 1,000 UNITS/500 mL 1,000 ML ONE (12:03)
[2020-07-20] MEDS ORDERED: Dexamethasone 4 MG/ML VIAL ONE (13:57)
[2020-07-20] MEDS ORDERED: Perflutren Lipid Microsphere 1.3 ML in 0.9 % Sodium Chloride 8.7 ML IVP PRN (18:20)
[2020-07-20] MEDS ORDERED: Naloxone 0.4 MG/ML INJ IVP PRN ×2 (18:20)
[2020-07-20] MEDS ORDERED: Acetaminophen 325 MG TABLET PO PRN (18:20)
[2020-07-20] MEDS ORDERED: *HR* HYDROcodone/Acet 5/325 mg TABLET PO PRN (18:20)
[2020-07-20] MEDS ORDERED: Ondansetron 4 MG/2 ML VIAL IVP PRN (18:20)
[2020-07-20] MEDS ORDERED: *HR* Labetalol 20 MG/4 ML SYRINGE IVP PRN (18:20)
[2020-07-20 19:30] LABS: Immature Granulocytes % 0.5 % (0-4); Red Cell Distribution Width 17.4 % (11.5-14.5)
[2020-07-20 19:31] LABS: Hematocrit 22.3 % (37.5-50.1); Hemoglobin 7.2 g/dL (12.9-16.9); Immature Platelets 1.5 % (1.1-6.1); Lymphocytes # 0.3 K/mcL (0.6-4.6); Lymphocytes % 14.7 %; Mean Corpuscular HGB Conc 32.3 g/dL (31.6-35.5); Mean Corpuscular Hemoglobin 30.9 pg (28.0-33.3); Mean Corpuscular Volume 95.7 fL (83.0-100.0); Mean Platelet Volume 8.9 fL (9.4-12.4); Monocytes # 0.1 K/mcL (0.0-1.3); Monocytes % 4.7 %; Neutrophils # 1.5 K/mcL (1.6-8.9); Red Blood Count 2.33 M/mcL (4.19-5.50); Segmented Neutrophils % 80.1 %; White Blood Count 1.9 K/mcL (4.3-11.1)
[2020-07-20 19:36] LABS: Platelet Count 91 K/mcL (140-400)
[2020-07-20] MEDS: CeFAZolin 2 GM/120 ML BAG IVPB SCH (20:48)
[2020-07-20] MEDS: traZODone 50 MG TABLET PO SCH (20:48)
[2020-07-20] MEDS ORDERED: 0.9 % Sodium Chloride 500 ML IVC ONE (22:48)
[2020-07-20] MEDS ORDERED: 0.9 % Sodium Chloride 250 ML ONE (23:34)
[2020-07-21] MEDS ORDERED: 0.9 % Sodium Chloride 1,000 ML IV ONE (03:06)
[2020-07-21 03:41] LABS: Hemoglobin 6.7 g/dL (12.9-16.9)
[2020-07-21 03:43] LABS: Immature Platelets 1.5 % (1.1-6.1); Lymphocytes # 0.4 K/mcL (0.6-4.6); Lymphocytes % 22.2 %; Mean Corpuscular HGB Conc 31.9 g/dL (31.6-35.5); Mean Corpuscular Hemoglobin 30.7 pg (28.0-33.3); Mean Corpuscular Volume 96.3 fL (83.0-100.0); Mean Platelet Volume 9.4 fL (9.4-12.4); Monocytes # 0.1 K/mcL (0.0-1.3); Monocytes % 7.4 %; Red Blood Count 2.18 M/mcL (4.19-5.50); Red Cell Distribution Width 17.3 % (11.5-14.5); Segmented Neutrophils % 70.4 %; White Blood Count 1.8 K/mcL (4.3-11.1)
[2020-07-21 03:44] LABS: Neutrophils # 1.3 K/mcL (1.6-8.9); Platelet Count 83 K/mcL (140-400)
[2020-07-21] MEDS ORDERED: 0.9 % Sodium Chloride 250 ML ONE (04:08)
[2020-07-21 04:53] LABS: Anisocytosis 1+ (Not Present); Microcytosis Present (Not Present); Platelet Estimate Decreased (Normal)
[2020-07-21] MEDS: CeFAZolin 2 GM/120 ML BAG IVPB SCH ×2 (05:09→14:11)
[2020-07-21 07:40] LABS: Eosinophils % 0.6 %; Hematocrit 23.7 % (37.5-50.1); Hemoglobin 7.6 g/dL (12.9-16.9); Mean Corpuscular HGB Conc 32.1 g/dL (31.6-35.5); Mean Corpuscular Hemoglobin 30.2 pg (28.0-33.3); Red Blood Count 2.52 M/mcL (4.19-5.50); Red Cell Distribution Width 18.2 % (11.5-14.5); White Blood Count 1.8 K/mcL (4.3-11.1)
[2020-07-21 07:42] LABS: Immature Granulocytes % 0.6 % (0-4); Immature Platelets 1.5 % (1.1-6.1); Lymphocytes # 0.5 K/mcL (0.6-4.6); Lymphocytes % 27.9 %; Mean Platelet Volume 9.1 fL (9.4-12.4); Monocytes # 0.2 K/mcL (0.0-1.3); Monocytes % 8.9 %; Neutrophils # 1.1 K/mcL (1.6-8.9)
[2020-07-21 07:47] LABS: Platelet Count 78 K/mcL (140-400)
[2020-07-21 07:48] LABS: BUN/Creatinine Ratio 23 (6-26); Blood Urea Nitrogen 25 mg/dL (8-23); Calcium 7.9 mg/dL (8.6-10.3); Carbon Dioxide 24 mEq/L (23-29); Chloride 104 mEq/L (98-107); Glucose 99 mg/dL (70-105); Osmolality,Calculated 282 (280-300); Sodium 134 mEq/L (136-145); eGFR For African Americans > 60 (> 60); eGFR For Non-African Americans > 60 (> 60)
[2020-07-21] MEDS: BuPROPion XL (24 HR) 150 MG TABLET PO SCH (08:12)
[2020-07-21] MEDS: *HR* LORazepam 1 MG TABLET PO SCH ×4 (08:12→20:08)
[2020-07-21] MEDS: Aspirin 81 MG TAB.CHEW PO SCH (08:12)
[2020-07-21] MEDS: Venlafaxine XR (24 HR) 75 MG CAP.ER.24H PO SCH (08:12)
[2020-07-21] MEDS: lisinopriL 5 MG TABLET PO SCH (08:12)
[2020-07-21 08:38] LABS: Anisocytosis 1+ (Not Present)
[2020-07-21 08:39] LABS: Polychromasia 1+ (Not Present); Tear Drop Cells 1+ (Not Present)
[2020-07-21 08:40] LABS: Platelet Estimate Decreased (Normal)
[2020-07-21] MEDS ORDERED: Aspirin Enteric Coated 81 MG Tablet PO SCH (09:00)
[2020-07-21] MEDS ORDERED: BuPROPion XL (24 HR) 150 MG TABLET PO SCH (09:00)
[2020-07-21] MEDS: LEVOMEFOLATE CALCIUM PO SCH (12:24)
[2020-07-21 18:02] LABS: Hematocrit 24.6 % (37.5-50.1)
[2020-07-21] MEDS: traZODone 50 MG TABLET PO SCH (20:08)
[2020-07-22 01:28] LABS: BUN/Creatinine Ratio 22 (6-26); Blood Urea Nitrogen 21 mg/dL (8-23); Carbon Dioxide 24 mEq/L (23-29); Chloride 105 mEq/L (98-107); Glucose 92 mg/dL (70-105); Osmolality,Calculated 283 (280-300); Potassium 3.8 mEq/L (3.5-5.1); Sodium 135 mEq/L (136-145); eGFR For African Americans > 60 (> 60); eGFR For Non-African Americans > 60 (> 60)
[2020-07-22 02:00] LABS: Red Blood Count 2.34 M/mcL (4.19-5.50); White Blood Count 1.3 K/mcL (4.3-11.1)
[2020-07-22 02:01] LABS: Hematocrit 22.3 % (37.5-50.1); Hemoglobin 7.1 g/dL (12.9-16.9); Mean Corpuscular HGB Conc 31.8 g/dL (31.6-35.5); Mean Corpuscular Hemoglobin 30.3 pg (28.0-33.3); Mean Corpuscular Volume 95.3 fL (83.0-100.0); Mean Platelet Volume 8.9 fL (9.4-12.4); Platelet Count 73 K/mcL (140-400); Red Cell Distribution Width 18.7 % (11.5-14.5)
[2020-07-22 02:02] LABS: Basophils % 0.8 %; Eosinophils % 0.8 %; Lymphocytes # 0.6 K/mcL (0.6-4.6); Lymphocytes % 42.6 %; Monocytes # 0.1 K/mcL (0.0-1.3); Monocytes % 8.5 %; Neutrophils # 0.6 K/mcL (1.6-8.9); Segmented Neutrophils % 47.3 %
[2020-07-22] MEDS ORDERED: 0.9 % Sodium Chloride 250 ML IVC SCH (07:45)
[2020-07-22] MEDS: Venlafaxine XR (24 HR) 75 MG CAP.ER.24H PO SCH (08:16)
[2020-07-22] MEDS: lisinopriL 5 MG TABLET PO SCH (08:16)
[2020-07-22] MEDS: *HR* LORazepam 1 MG TABLET PO SCH (08:16)
[2020-07-22] MEDS: BuPROPion XL (24 HR) 150 MG TABLET PO SCH (08:16)
[2020-07-22] MEDS: Aspirin 81 MG TAB.CHEW PO SCH (08:16)
[2020-07-22] MEDS: LEVOMEFOLATE CALCIUM PO SCH (10:06)
[2020-07-22 11:29] VITALS: BP 122/57
[2020-08-06] MEDS ORDERED: Cyanocobalamin (B-12) 1,000 MCG/ML VIAL IM SCH (09:00)
== END 2020-07-22 12:45 | disposition home or self-care (01) | DRG 38 ==
LOC: EMEROOARM 10:08 → 3BNU 10:08 → SUATTDRO 13:05 → 3BNU 14:14 → SUATTDRO 07-18 13:05 → 2NNU 07-20 16:11
PROVIDERS: ADMIT Internal Medicine; ATTEND Internal Medicine

== ENCOUNTER 2021-05-15 06:28 | Inpatient (IN) ==
[2021-05-15] MEDS ORDERED: *HR* Rocuronium Bromide 50 MG/5 ML VIAL ONE (06:52)
[2021-05-15] MEDS ORDERED: Ondansetron 4 MG/2 ML VIAL ONE (06:52)
[2021-05-15] MEDS ORDERED: Lidocaine -MPF 2% 2 ML VIAL ONE ×2 (06:52→07:54)
[2021-05-15] MEDS ORDERED: *HR* Propofol 200 MG/20 ML VIAL IVP ONE ×2 (06:53→10:51)
[2021-05-15] MEDS ORDERED: *HR* FentaNYL (PF) 100 MCG/2 ML VIAL ONE (06:54)
[2021-05-15] MEDS ORDERED: *HR* Phenylephrine 10 MG/ML VIAL ONE (06:57)
[2021-05-15] MEDS ORDERED: Heparin 1,000 UNITS/500 mL 0 ML ONE (07:05)
[2021-05-15] MEDS ORDERED: Protamine Sulfate 50 MG/5 ML VIAL IVP ONE (07:06)
[2021-05-15] MEDS ORDERED: Heparin 1,000 UNITS/500 mL 1,000 ML ONE (07:07)
[2021-05-15] MEDS ORDERED: *HR* Remifentanil 2 MG VIAL IVP ONE (07:12)
[2021-05-15] MEDS ORDERED: Ringers Solution, Lactated 1,000 ML IVC SCH ×2 (07:15→07:30)
[2021-05-15] MEDS ORDERED: *HR* FentaNYL (PF) 100 MCG/2 ML VIAL IVP PRN (07:21)
[2021-05-15] MEDS ORDERED: Ondansetron 4 MG/2 ML VIAL IVP PRN (07:21)
[2021-05-15] MEDS ORDERED: *HR* OxyCODONE Immed Rel 5 MG TABLET PO PRN (07:21)
[2021-05-15] MEDS ORDERED: Lidocaine HCL 4 ML Topical Solution (Laryng-O-Jet Kit Sterile Pak) TP ONE (07:27)
[2021-05-15] MEDS ORDERED: ceFAZolin 1,000 MG, Sodium Chloride IRRigation 1,000 ML IR ONE (07:45)
[2021-05-15] MEDS ORDERED: Vancomycin 1,000 MG, Sodium Chloride IRRigation 1,000 ML IR ONE (08:00)
[2021-05-15] MEDS ORDERED: *HR* Heparin 5,000 UNIT/ML VIAL ONE ×2 (08:27→11:28)
[2021-05-15] MEDS ORDERED: *HR* Remifentanil 1 MG VIAL IVP ONE ×2 (10:39→11:31)
[2021-05-15] MEDS ORDERED: Sugammadex Sodium 200 MG/2 ML VIAL IV ONE (12:17)
[2021-05-15] MEDS ORDERED: *HR* Labetalol 20 MG/4 ML SYRINGE IVP ONE (12:22)
[2021-05-15] MEDS ORDERED: Cyanocobalamin (B-12) 1,000 MCG/ML VIAL IM SCH (14:02)
[2021-05-15] MEDS ORDERED: *HR* LORazepam 1 MG TABLET PO PRN (14:02)
[2021-05-15] MEDS ORDERED: Naloxone 0.4 MG/ML INJ IVP PRN ×2 (14:02→21:03)
[2021-05-15 14:47] LABS: Eosinophils % 0.6 %; Hemoglobin 8.5 g/dL (12.9-16.9); Immature Granulocytes % 1.2 % (0-4); Monocytes # 0.1 K/mcL (0.0-1.3); Monocytes % 2.9 %; Neutrophils # 1.4 K/mcL (1.6-8.9); Segmented Neutrophils % 84.7 %; White Blood Count 1.7 K/mcL (4.3-11.1)
[2021-05-15 14:49] LABS: Basophils % 0.6 %; Hematocrit 27.2 % (37.5-50.1); Immature Platelets 1.5 % (1.1-6.1); Lymphocytes # 0.2 K/mcL (0.6-4.6); Mean Corpuscular HGB Conc 31.3 g/dL (31.6-35.5); Mean Corpuscular Hemoglobin 31.4 pg (28.0-33.3); Mean Corpuscular Volume 100.4 fL (83.0-100.0); Red Blood Count 2.71 M/mcL (4.19-5.50)
[2021-05-15 14:52] LABS: Platelet Count 46 K/mcL (140-400)
[2021-05-15 15:21] LABS: Platelet Estimate Decreased (Normal)
[2021-05-15] MEDS: Baclofen 10 MG TABLET PO SCH ×2 (16:03→20:26)
[2021-05-15] MEDS: cloNIDine HCL 0.1 MG TABLET PO SCH (20:26)
[2021-05-15] MEDS ORDERED: Melatonin 3 MG TABLET PO SCH (21:00)
[2021-05-15] MEDS ORDERED: traZODone 50 MG TABLET PO SCH (21:00)
[2021-05-15] MEDS ORDERED: *HR* Labetalol 20 MG/4 ML SYRINGE IVP PRN (21:03)
[2021-05-15] MEDS ORDERED: Acetaminophen 325 MG TABLET PO PRN (21:07)
[2021-05-15] MEDS ORDERED: *HR* HYDROcodone/Acet 5/325 mg TABLET PO PRN (21:07)
[2021-05-16 06:38] VITALS: TEMP 98.5
[2021-05-16] MEDS: cloNIDine HCL 0.1 MG TABLET PO SCH (07:42)
[2021-05-16] MEDS: Baclofen 10 MG TABLET PO SCH (07:42)
[2021-05-16] MEDS ORDERED: Aspirin Enteric Coated 81 MG Tablet PO SCH (09:00)
[2021-05-16] MEDS ORDERED: LEVOMEFOLATE CALCIUM 15 MG PO SCH (09:00)
[2021-05-16] MEDS ORDERED: Thiamine (B-1) 100 MG TABLET PO SCH (09:00)
[2021-05-16] MEDS ORDERED: Linaclotide [Linzess] 145 mcg capsule PO SCH (09:00)
[2021-05-16] MEDS ORDERED: BuPROPion XL (24 HR) 150 MG TABLET PO SCH (09:00)
[2021-05-16 10:51] VITALS: BP 120/61; PULSE 77; O2SAT 98
== END 2021-05-16 14:12 | disposition home or self-care (01) | DRG 38 ==
LOC: SAMDAY 06:28 → 2NNU 07:20
PROVIDERS: ADMIT Surgery Vascular Surgery; ATTEND Surgery Vascular Surgery

== ENCOUNTER 2022-07-22 10:58 | Observation (INO) ==
[~2022-07-22 10:58] MED LIST changes: +*HR* FentaNYL (PF) 100 MCG/2 ML VIAL ONE; +*HR* Midazolam HCl 2 MG/2 ML VIAL ONE; +*HR* Propofol 200 MG/20 ML VIAL IVP ONE; +*HR* Rocuronium Bromide 50 MG/5 ML VIAL ONE; +*HR* Succinylcholine 200 MG/10 ML VIAL IVP ONE; +Lidocaine -MPF 2% 2 ML VIAL ONE; -ceFAZolin 1,000 MG, Sodium Chloride IRRigation 1,000 ML IR ONE
[2022-07-22] MEDS ORDERED: Ropivacaine/PF 0.5% 30 ML VIAL ONE (11:03)
[2022-07-22] MEDS ORDERED: Vancomycin 1,000 MG VIAL ONE (11:43)
[2022-07-22] MEDS ORDERED: CeFAZolin Syr 2,000MG/20 ML 2,000 MG/20 ML SYRINGE IVPB ONE (11:50)
[2022-07-22 11:57] LABS: Basophils % 0.6 %; Eosinophils % 1.3 %; Hematocrit 27.9 % (37.5-50.1); Immature Granulocytes % 1.6 % (0-4); Lymphocytes # 0.4 K/mcL (0.6-4.6); Lymphocytes % 13.6 %; Mean Corpuscular HGB Conc 32.3 g/dL (31.6-35.5); Mean Corpuscular Hemoglobin 30.9 pg (28.0-33.3); Mean Corpuscular Volume 95.9 fL (83.0-100.0); Mean Platelet Volume 8.4 fL (9.4-12.4); Monocytes # 0.2 K/mcL (0.0-1.3); Monocytes % 6.8 %; Neutrophils # 2.3 K/mcL (1.6-8.9); Nucleated Red Blood Cells 0.6 /100 WBC (0); Platelet Count 112 K/mcL (140-400); Red Blood Count 2.91 M/mcL (4.19-5.50); Red Cell Distribution Width 19.2 % (11.5-14.5); Segmented Neutrophils % 76.1 %; White Blood Count 3.1 K/mcL (4.3-11.1)
[2022-07-22] MEDS ORDERED: Ringers Solution, Lactated 1,000 ML IVC SCH ×2 (12:00→12:15)
[2022-07-22] MEDS ORDERED: *HR* OxyCODONE Immed Rel 5 MG TABLET PO PRN ×3 (12:14→22:52)
[2022-07-22] MEDS ORDERED: MOM Conc 10 ML UD.LIQ PO PRN (12:14)
[2022-07-22] MEDS ORDERED: Ondansetron 4 MG/2 ML VIAL IVP PRN (12:14)
[2022-07-22] MEDS ORDERED: Sennosides 8.6 MG TABLET PO PRN (12:14)
[2022-07-22] MEDS ORDERED: EPHEDrine sulfate 50 MG/10 ML VIAL IVP ONE (13:00)
[2022-07-22] MEDS ORDERED: Albumin Human 5% 12.5 GM/250 ML IV.SOLN ONE (13:27)
[2022-07-22] MEDS ORDERED: Tranexamic Acid 1,000 MG/10 ML VIAL ONE (14:09)
[2022-07-22] MEDS ORDERED: Ipratropium/Albuterol Neb 3 ML ONE (14:42)
[2022-07-22] MEDS ORDERED: Ipratropium Neb 0.5 MG NEBULIZER IH PRN (14:42)
[2022-07-22] MEDS: Acetaminophen 325 MG TABLET PO SCH (18:15)
[2022-07-22] MEDS: Ketorolac 30 MG/ML VIAL IVP SCH (18:16)
[2022-07-22] MEDS ORDERED: *HR* LORazepam 1 MG TABLET PO PRN (19:57)
[2022-07-22] MEDS: Baclofen 10 MG TABLET PO SCH (20:55)
[2022-07-22] MEDS ORDERED: traZODone 50 MG TABLET PO SCH ×2 (21:00)
[2022-07-22] MEDS ORDERED: CeFAZolin 2 GM/120 ML BAG IVPB SCH (21:00)
[2022-07-22] MEDS ORDERED: Melatonin 3 MG TABLET PO PRN (22:51)
[2022-07-22] MEDS ORDERED: Naloxone 0.4 MG/ML INJ IVP PRN (22:51)
[2022-07-22] MEDS ORDERED: traZODone 50 MG TABLET PO ONE (23:45)
[2022-07-23] MEDS ORDERED: cefTRIAXone 1,000 MG in 0.9 % Sodium Chloride Mini Bag 100 ML IVPB SCH
[2022-07-23] MEDS: Ipratropium/Albuterol Neb 3 ML IH SCH ×3 (00:22→10:10)
[2022-07-23] MEDS: MetroNIDAZOLE 500 MG/100 ML 500 MG/100 ML BAG IVPB SCH ×3 (00:30→16:18)
[2022-07-23] MEDS: Acetaminophen 325 MG TABLET PO SCH ×3 (00:30→12:24)
[2022-07-23] MEDS: Ketorolac 30 MG/ML VIAL IVP SCH ×3 (01:27→12:24)
[2022-07-23 02:04] LABS: Basophils % 0.2 %; Hematocrit 25.1 % (37.5-50.1); Immature Granulocytes % 0.4 % (0-4); Lymphocytes # 0.3 K/mcL (0.6-4.6); Mean Corpuscular HGB Conc 31.9 g/dL (31.6-35.5); Mean Corpuscular Hemoglobin 30.5 pg (28.0-33.3); Mean Corpuscular Volume 95.8 fL (83.0-100.0); Mean Platelet Volume 8.2 fL (9.4-12.4); Monocytes # 0.3 K/mcL (0.0-1.3); Monocytes % 4.6 %; Neutrophils # 4.9 K/mcL (1.6-8.9); Platelet Count 117 K/mcL (140-400); Red Blood Count 2.62 M/mcL (4.19-5.50); Red Cell Distribution Width 19.2 % (11.5-14.5); Segmented Neutrophils % 89.8 %; White Blood Count 5.4 K/mcL (4.3-11.1)
[2022-07-23 02:09] LABS: INR 1.3; Prothrombin Time 14.4 Seconds (9.4-12.1)
[2022-07-23 02:11] LABS: Activated Partial Thrombo Time 31.5 Seconds (26.0-36.0)
[2022-07-23 02:20] LABS: Albumin 3.9 g/dL (3.5-5.7); Bilirubin,Total 1.5 mg/dL (0.3-1.0); Calcium 8.5 mg/dL (8.6-10.3); Magnesium 1.8 mg/dL (1.6-2.6); Phosphorous 3.3 mg/dL (2.7-4.5); Potassium 4.3 mEq/L (3.5-5.1); Total Protein 5.9 g/dL (6.4-8.9)
[2022-07-23] MEDS: *HR* OxyCODONE Immed Rel 5 MG TABLET PO PRN ×2 (03:43→09:36)
[2022-07-23] MEDS: Baclofen 10 MG TABLET PO SCH ×2 (08:20→14:52)
[2022-07-23] MEDS ORDERED: Thiamine (B-1) 100 MG TABLET PO SCH (09:00)
[2022-07-23] MEDS ORDERED: Venlafaxine XR (24 HR) 75 MG CAP.ER.24H PO SCH (09:00)
[2022-07-23] MEDS ORDERED: cloNIDine HCL 0.1 MG TABLET PO SCH (09:00)
[2022-07-23] MEDS ORDERED: Aspirin Enteric Coated 81 MG Tablet PO SCH (09:00)
[2022-07-23] MEDS ORDERED: Lactobacillus 1 EACH CAP.SPRINK PO SCH (09:00)
[2022-07-23] MEDS ORDERED: BuPROPion XL (24 HR) 150 MG TABLET PO SCH ×2 (09:00)
[2022-07-23] MEDS ORDERED: Chlorhexidine Rinse 15 ML MOUTHWASH MM SCH (09:00)
[2022-07-23 09:17] VITALS: O2SAT 98
[2022-07-23] MEDS ORDERED: Ipratropium/Albuterol Neb 3 ML IH PRN (10:42)
[2022-07-23 11:25] VITALS: BP 189/58; TEMP 98
[2022-07-23 12:01] VITALS: PULSE 90
== END 2022-07-23 19:32 | disposition home health service (06) ==
LOC: SUATTDRO → 2NNU 10:58 → SDCAOSI 10:58 → 2NNU 16:45 → 4WAOSI 07-23 12:30
PROVIDERS: ADMIT Internal Medicine; ATTEND Internal Medicine